=== PATIENT | male | born 1955 | race Caucasian/White ===

== ENCOUNTER 2018-02-13 10:44 | Emergency (ER) | payer SELFPAY ==
[2018-02-13 10:44] VITALS: BP 155/96; PULSE 76; RESP 16; TEMP 36.4; O2SAT 100; BMI 23.3
--- NOTE | 2018-02-13 10:55 | CT_ITS ---
STUDY: CT ABDOMEN AND PELVIS WITHOUT CONTRAST REASON FOR EXAM: Male, 62 years old. Right flank pain. History of kidney stones. RADIATION DOSAGE (If Supplied By Facility): CTDIvol = ( 7.16 ) mGy, DLP = ( 346.85 ) mGycm TECHNIQUE: Transaxial images were obtained from the dome of the diaphragm to the symphysis pubis without oral contrast, and without intravenous contrast. Sagittal and coronal images were reconstructed. Individualized dose optimization techniques were used for this CT. COMPARISON: None. FINDINGS: Mild degree of increased markings at the lung bases suggestive of atelectasis and/or scarring. The visualized portions of the heart are within normal limits. Normal liver. Normal gallbladder and extrahepatic biliary system. Normal spleen. Normal pancreas. Normal bilateral adrenal glands. Punctate calcification in the upper pole calyx of the right kidney. 2 tiny calculi in the midportion of the right kidney. Mild degree of right hydronephrosis and right hydroureter due to a 3.2 mm calculus at the right ureterovesical junction. There is a 5.4 cm x 5.4 cm cyst in the posterior medial aspect of the upper pole of the left kidney. 2 mm nonobstructive calculus in the upper and midportion of the left kidney. 3 mm calculus in the lower pole calyx of the left kidney. Normal visualized stomach. Normal small intestine. There are multiple colonic diverticula consistent with diverticulosis. The appendix is visualized and appears normal. There is diffuse atherosclerotic calcification of the abdominal aorta, without a demonstrated aneurysm. Normal inferior vena cava. Normal retroperitoneum. Normal urinary bladder. There is a small umbilical hernia containing fat. There are diffuse degenerative changes of the visualized lumbar spine. CT/Abdomen/Pelvis without Cont IMPRESSION: Right hydronephrosis due to a 3.2 mm calculus at the right ureterovesical junction. Nonobstructive bilateral intrarenal calculi. Left renal cysts. Electronically Signed: Efren Tsang MD at 12:28 EDT Tel [phone], Service support ,
[2018-02-13] MEDS: Morphine 4 MG/ML Syringe IV (11:01)
[2018-02-13] MEDS: Ondansetron 4 MG/2 ML Vial IV (11:01)
[2018-02-13] MEDS: Ketorolac 30 MG/ML Syringe 15 MG IV (11:02)
[2018-02-13 11:08] LABS: Absolute Neutrophil Count 3.1 X10^3/uL (2.0-7.7); Basophil# 0.02 X10^3/uL; Basophil% 0.3 % (0-1); Eosinophil# 0.02 X10^3/uL; Eosinophils% 0.3 % (0-5); Hematocrit 44.1 % (40-54); Hemoglobin 14.6 g/dl (13.0-16.5); Mean Corp Hgb Conc 33.1 g/gl (32-36); Mean Corpuscular Hgb 31.5 pg (27.0-32.0); Mean Platelet Vol. 10.1 fl (6.2-12.0); Monocyte% 12.2 % (0-10); Neutrophil # 3.11 X10^3/uL (2.7-7.7); Platelet Count 241 K/mm3 (150-450); RBC Distribution Width CV 14.2 % (11.6-14.6); RBC Distribution Width SD 49.5 fl (35.1-43.9); Red Blood Count 4.64 M/mm3 (4.6-6.2); White Blood Count 5.8 K/mm3 (4.4-11.0)
[2018-02-13 11:10] LABS: POSITIVE COUNT NO; POSITIVE DIFFERENTIAL NO; POSITIVE MORPHOLOGY NO
[2018-02-13 11:14] LABS: Anion Gap 14 (5-15); BUN 27 mg/dL (7-18); BUN/Creat Ratio 25.7 RATIO (10-20); Calcium,Total 9.1 mg/dL (8.5-10.1); Chloride 102 mmol/L (98-107); Creatinine, Serum 1.05 mg/dL (0.70-1.30); EST Glomerular Filtration Rate 76 mL/min (>60); Est Glom Filt Rate - Afr Amer 91 mL/min (>60); Estimated Creatinine Clearance 80.32 ml/min; Glucose 155 mg/dL (74-106); Potassium 4.2 mmol/L (3.5-5.1); Sodium Level 139 mmol/L (136-145)
[2018-02-13 11:38] LABS: Color, Urine Yellow (Yellow); Glucose, Dipstick Normal (Normal); Ketone-Dipstick 50 mg/dl (Negative); Leukocyte Esterase-Dipstick Negative /ul (Negative); Nitrite-Dipstick Negative (Negative); Occult Blood-Urine 25 /ul (Negative); Protein-Dipstick 15 mg/dl (Negative); Specific Gravity, Urine 1.015 (1.002-1.030); Urine Bilirubin Dipstick Negative (Negative); Urine Clarity Sl. Cloudy (Clear); Urine Urobilinogen Normal (Normal)
--- NOTE | 2018-02-13 11:54 | ED.DCSUM_ITS ---
- ER Visit Summary Date of Service: 02/13/18 Chief Complaint: Flank pain History of Present Illness: The patient is a 62 M presenting for evaluation secondary to flank pain. Patient states that very suddenly 45 minutes ago he had a onset of right-sided flank pain. He states that it is sharp waxing and waning and radiating down to his right groin. Patient states that this seems consistent with the same pain he had when he had a kidney stone 7 years ago. That kidney stone did require lithotripsy. Patient states that his symptoms are associated with nausea no fever and are associated with some dysuria but no hematuria. Review of systems otherwise negative. Physical Examination: Vital signs within normal limits. Well-nourished male visibly uncomfortable secondary to pain otherwise not in physiologic distress. Moist mucous membranes. Heart regular rate and rhythm lungs sounds clear. Abdomen tender in the right lower quadrant with no guarding and no rebound tenderness. There is right-sided CVA tenderness to percussion. Patient is diaphoretic. Remainder physical otherwise unremarkable. Test Results: CBC unremarkable, chemistry unremarkable, CT abdomen and pelvis shows a stone at the patient's right UVJ. Emergency Department Course and Treatment: Patient presented for evaluation secondary to flank pain. IV was established she was given Toradol Zofran and morphine repeat evaluation 1145 showed resolution of the patient's pain. CT shows a stone at the right UVJ, this does appear as if it will be able to be passed spontaneously. It measures only 4 mm. Patient's urinalysis shows no pyuria. Patient will be discharged with a course of Percocet and Flomax and follow-up with urology. Disposition: Discharge Impression: 1. Right-sided urolithiasis This note was generated with [employer] dictation software. It may contain incorrect words, spelling, and punctuation that were not noted in review of the chart prior to signing ED Disposition - Plan for ED Patient: Disposition: Home or Assisted Living Chief Complaint: Flank Pain Diagnosis: Urolithiasis Instructions: ED Stone Renal W Colic Prescriptions: Oxycodone HCl/Acetaminophen [Percocet 5/325] 1 tab PO Q6H PRN PRN 3 Days #12 tab PRN Reason: Pain Tamsulosin HCl [Flomax] 0.4 mg PO DAILY 5 Days #5 cap Referrals: Darron Mcdermott MD [STAFF PHYSICIAN] - 1 Week
[2018-02-13 11:57] LABS: Bacteria RARE /hpf (None Seen); Mucous, Urine RARE /hpf (<or=2+); Red Blood Cells-Urine 0-5 SEEN /hpf (0-5); Squamous Epithelial Cells - UA 0-5 SEEN /hpf (0-5); White Blood Cells 0-5 SEEN /hpf (0-5)
[2018-02-13 12:17] VITALS: BP 154/98; PULSE 76; RESP 16; O2SAT 98
== END 2018-02-13 12:25 | disposition home or self-care (01) ==
PROVIDERS: Emergency Provider Emergency Medicine
DX: N20.1 Calculus of ureter (principal); Z87.442 Personal history of urinary calculi
CPT/HCPCS: 74176; 80048; 81001; 85025; 96374; 96375; 99285; J2405